=== PATIENT | female | born 1960 | race Caucasian/White ===

== ENCOUNTER → 2019-05-28 | Outpatient (CLI) | payer OTHER | LOC: MAMMO 14:57 | DX: Z12.31 Encounter for screening mammogram for malignant neoplasm of breast (principal); N60.02 Solitary cyst of left breast ==

== ENCOUNTER → 2019-06-27 | Day surgery (SDC) | payer OTHER | LOC: MSO 08:23 | DX: Z12.11 Encounter for screening for malignant neoplasm of colon (principal); I10 Essential (primary) hypertension; E03.9 Hypothyroidism, unspecified; F32.9 Major depressive disorder, single episode, unspecified; F41.9 Anxiety disorder, unspecified | CPT/HCPCS: 00812; J2704; J3010; J7120 ==

== ENCOUNTER → 2021-04-28 | Outpatient (REF) | LOC: LAB 06:39 | DX: Z00.00 Encounter for general adult medical examination without abnormal findings (principal); E78.5 Hyperlipidemia, unspecified; E03.4 Atrophy of thyroid (acquired) ==

== ENCOUNTER → 2021-05-25 | Outpatient (CLI) | payer OTHER | LOC: MAMMO 08:30 | DX: Z13.820 Encounter for screening for osteoporosis (principal); M81.0 Age-related osteoporosis without current pathological fracture ==

== ENCOUNTER → 2022-05-14 | Outpatient (CLI) | payer OTHER ==
[2022-05-14 09:18] LABS: BASO # 0.04 K/mm3 (0.02-0.10); EOS # 0.14 K/mm3 (0.04-0.40); EOS % 2.7 % (1.0-5.0); HEMATOCRIT 41.3 % (37.0-47.0); HEMOGLOBIN 13.3 g/dL (12.5-16.0); LYMPH# 1.65 K/mm3 (1.50-4.00); MEAN CELL VOLUME 102 fl (78-100); MEAN CORPUSCULAR HEMOGLOBIN 33 pg (27-31); MEAN CORPUSCULAR HGB CONC 32 g/dL (33-37); MEAN PLATELET VOLUME 8.6 fl (7.4-10.4); MONO # 0.53 K/mm3 (0.20-0.80); NEU # 2.73 K/mm3 (1.40-6.50); PLATELET COUNT 280 K/mm3 (130-400); RED BLOOD COUNT 4.04 M/mm3 (4.10-5.30); RED CELL DISTRIBUTION WIDTH 13.5 % (11.5-14.5); WHITE BLOOD COUNT 5.1 K/mm3 (4.8-10.8)
[2022-05-14 09:30] LABS: ALBUMIN 4.5 g/dL (3.4-4.8); POTASSIUM 4.6 mmol/L (3.5-5.1)
[2022-05-14 09:31] LABS: CALCIUM 9.7 mg/dL (8.3-10.5)
[2022-05-14 09:32] LABS: TOTAL PROTEIN 7.5 g/dL (6.2-8.1)
[2022-05-14 09:34] LABS: TOTAL BILIRUBIN 0.4 mg/dL (0.2-1.2)
== END ==
LOC: LAB 09:01
PROVIDERS: Family Medicine
DX: Z00.00 Encounter for general adult medical examination without abnormal findings (principal); E78.5 Hyperlipidemia, unspecified; E03.4 Atrophy of thyroid (acquired); E55.9 Vitamin D deficiency, unspecified

== ENCOUNTER → 2022-05-18 | Outpatient (CLI) | payer OTHER ==
[2022-05-21 08:12] LABS: ALTERNARIA TENUIS CNT <0.10 kU/L (()); ASPERGILLUS FUMIGATUS AL COUNT <0.10 kU/L (()); BAKERS YEAST ALLERGEN COUNT <0.10 kU/L (()); BERMUDA GRASS ALLERGEN COUNT <0.10 kU/L (()); BOX ELDER-MAPLE ALLERGEN COUNT <0.10 kU/L (()); CAT DANDER ALLERGEN COUNT <0.10 kU/L (()); CLADOSPORIUM ALLERGEN COUNT <0.10 kU/L (()); COCKROACH ALLERGEN COUNT <0.10 kU/L (()); CORN ALLERGEN COUNT <0.10 kU/L (()); COTTONWOOD TREE ALLERGEN COUNT <0.10 kU/L (()); DOG DANDER ALLERGEN COUNT <0.10 kU/L (()); DUST MITES (D.F.) ALLERG COUNT <0.10 kU/L (()); DUST MITES (D.P.) ALLERG COUNT <0.10 kU/L (()); EGG WHITE ALLERGEN COUNT <0.10 kU/L (()); ELM TREE ALLERGEN COUNT <0.10 kU/L (()); FIREBUSH ALLERGEN COUNT <0.10 kU/L (()); MILK ALLERGEN COUNT <0.10 kU/L (()); OAK ALLERGEN COUNT <0.10 kU/L (()); ORANGE ALLERGEN COUNT <0.10 kU/L (()); PEANUT ALLERGEN COUNT <0.10 kU/L (()); RICE ALLERGEN COUNT <0.10 kU/L (()); ROUGH MARSH ELDER ALLERG COUNT <0.10 kU/L (()); RUSSIAN THISTLE ALLERGEN COUNT <0.10 kU/L (()); SHORT RAGWEED ALLERGEN COUNT <0.10 kU/L (()); SOYBEAN ALLERGEN COUNT <0.10 kU/L (()); STRAWBERRY ALLERGEN COUNT <0.10 kU/L (()); TOMATO ALLERGEN COUNT <0.10 kU/L (()); WHEAT ALLERGEN COUNT <0.10 kU/L (())
== END ==
LOC: LAB 09:22
PROVIDERS: Family Medicine
DX: Z00.00 Encounter for general adult medical examination without abnormal findings (principal); E78.5 Hyperlipidemia, unspecified; F41.9 Anxiety disorder, unspecified; E03.4 Atrophy of thyroid (acquired); I10 Essential (primary) hypertension; K21.9 Gastro-esophageal reflux disease without esophagitis; M81.0 Age-related osteoporosis without current pathological fracture; I73.00 Raynaud's syndrome without gangrene; J30.2 Other seasonal allergic rhinitis; E55.9 Vitamin D deficiency, unspecified

== ENCOUNTER → 2023-02-23 | Outpatient (CLI) | payer OTHER ==
[2023-02-23 11:31] LABS: BASO # 0.01 K/mm3 (0.02-0.10); EOS # 0.08 K/mm3 (0.04-0.40); EOS % 1.6 % (1.0-5.0); HEMOGLOBIN 12.9 g/dL (12.5-16.0); LYMPH# 1.45 K/mm3 (1.50-4.00); MEAN CELL VOLUME 103 fl (78-100); MEAN CORPUSCULAR HEMOGLOBIN 33 pg (27-31); MEAN CORPUSCULAR HGB CONC 32 g/dL (33-37); MEAN PLATELET VOLUME 8.5 fl (7.4-10.4); MONO # 0.54 K/mm3 (0.20-0.80); NEU # 3.02 K/mm3 (1.40-6.50); PLATELET COUNT 267 K/mm3 (130-400); RED BLOOD COUNT 3.87 M/mm3 (4.10-5.30); RED CELL DISTRIBUTION WIDTH 12.7 % (11.5-14.5); WHITE BLOOD COUNT 5.1 K/mm3 (4.8-10.8)
[2023-02-23 11:37] LABS: ALBUMIN 4.5 g/dL (3.4-4.8); POTASSIUM 3.7 mmol/L (3.5-5.1)
[2023-02-23 11:39] LABS: CALCIUM 9.5 mg/dL (8.3-10.5)
[2023-02-23 11:40] LABS: TOTAL PROTEIN 7.4 g/dL (6.2-8.1)
[2023-02-23 11:42] LABS: TOTAL BILIRUBIN 0.3 mg/dL (0.2-1.2)
== END ==
LOC: LAB 11:16
PROVIDERS: Nurse Practitioner
DX: R19.5 Other fecal abnormalities (principal)

== ENCOUNTER → 2023-02-24 | Outpatient (CLI) | payer OTHER | LOC: LAB 15:09 | DX: R19.5 Other fecal abnormalities (principal) ==

== ENCOUNTER → 2024-01-23 | Outpatient (CLI) | payer OTHER | LOC: MAMMO 13:23 | DX: Z12.31 Encounter for screening mammogram for malignant neoplasm of breast (principal); M81.0 Age-related osteoporosis without current pathological fracture ==

== ENCOUNTER → 2024-04-12 | Outpatient (CLI) | payer OTHER | LOC: RAD 13:12 | DX: M25.552 Pain in left hip (principal) ==